=== PATIENT | male | born 1965 | race Caucasian/White ===

== ENCOUNTER 2022-07-08 11:48 | Outpatient (CLI) | payer BC, SELFPAY ==
--- NOTE | ~2022-07-08 | CT_ITS ---
EXAMINATION: CT sinus wo con DATE: 07/08/2022 12:09 INDICATION: Sinusitis. History of deviated septum, surgery TECHNIQUE: Computed tomography (CT) of the paranasal sinuses was performed without contrast. Iterativ e reconstruction technique was employed. Exam dose: 261.43 mGy-cm total exam DLP. COMPARISON: None FINDINGS: The nasal septum is essentially midline. Prominent soft tissue swelling of the nasal turbinates. Intralamellar cell of middle nasal turbinates, more prominent on the right. Bilateral nasal antral windows, larger on the left. Status post partial ethmoidectomies. There is mild mucoperiosteal thickening of the right maxillary sinus, minimal mucoperiosteal thickeni ng along the medial wall of the left maxillary sinus. Frontal sinuses, ethmoid air cells and sphenoid sinuses are clear. The mastoid air cells are well-developed and aerated bilaterally. Middle and inner ear apparatus appe ar normal bilaterally. IMPRESSION: Bilateral nasal antral windows, larger on the left Mild mucoperiosteal thickening of right maxillary sinus, minimal mucoperiosteal thickening of left ma xillary sinus Mild intralamellar cell of middle nasal turbinates Reviewed, dictated and finalized at [facility]. Reviewed, dictated and finalized at [facility]. S [employer]AM [employer] IMPRESSION: Bilateral nasal antral windows, larger on the left Mild mucoperiosteal thickening of right maxillary sinus, minimal mucoperiosteal thickening of left maxillary sinus Mild intralamellar cell of middle nasal turbinates
== END 2022-07-08 11:49 ==
PROVIDERS: PCP Family Medicine; Visit Provider Physician Assistant Medical
DX: J32.9 Chronic sinusitis, unspecified (principal)
CPT/HCPCS: 70486